=== PATIENT | female | born 1980 | race Caucasian/White ===

== ENCOUNTER 2017-01-24 14:26 | Emergency (ER) | payer BC ==
[~2017-01-24] VITALS: Ht 160 cm; Wt 77.5 kg
[~2017-01-24 14:26] MED LIST: DAILY MULTIPLE1 EACH PO; HYDROCODON-ACE1 EAC7 PO; VITAMIN D-32000 UNI2 PO
[2017-01-24 15:17] LABS: HEMATOCRIT 46.7 % (36.0-46.0); MCH 33.7 PG (29.0-34.0); MCHC 33.6 G/DL (30.0-36.0); MCV 100.2 FL (83-99); MEAN PLAT.VOLUME 12.3 uM^3 (9.5-12.4); PLATELET COUNT 217 K/uL (156-360); RBC DIS.WIDTH-CV 12.7 % (11.8-14.6); RBC DIS.WIDTH-SD 47.4 % (39-53); RED BLOOD COUNT 4.66 M/uL (3.80-5.20); WHITE BLOOD COUNT 7.8 K/uL (4.1-10.2)
[2017-01-24 15:25] LABS: CHLORIDE 106 mEq/L (99-109); POTASSIUM 3.9 mEq/L (3.7-5.4); SODIUM 143 mEq/L (136-147)
[2017-01-24 15:27] LABS: GLUCOSE 118 mg/dL (70-99)
[2017-01-24 15:28] LABS: ANION GAP 10 MEQ/L (2-14)
[2017-01-24 15:29] LABS: TOTAL BILIRUBIN 0.4 mg/dL (0.0-1.0)
[2017-01-24 15:30] LABS: ALKALINE PHOSPHATASE 58 IU/L (3-129)
[2017-01-24 15:31] LABS: GFR ESTIMATE (CALCULATED) > 59 mL/min/
[2017-01-24 15:32] LABS: UREA NITROGEN (BUN) 12 mg/dL (9-23)
[2017-01-24 15:41] LABS: QUANTITATIVE HCG < 4.0 MIU/ML
[2017-01-24 16:29] LABS: LIPASE 31 U/L (1.0-51.0)
[2017-01-24 16:30] LABS: ADD MIUA? YES; BILIRUBIN NEGATIVE; BLOOD NEGATIVE; COLOR YELLOW ((YELLOW)); GLUCOSE (STRIP) NEGATIVE; KETONES NEGATIVE; LEUKOCYTES LARGE; NITRITE NEGATIVE; PROTEIN (STRIP) 30; SPECIFIC GRAVITY 1.012 (1.000-1.030); UROBILINOGEN 0.2 MG/DL (0.2-1.0)
[2017-01-24 16:58] LABS: RED BLOOD CELLS 0-5 /HPF (0-5); WHITE BLOOD CELLS 40-50 /HPF (0-5)
[2017-01-24 16:59] LABS: BACTERIA 1+ /HPF; EPITHELIAL CELLS 1+ /HPF; MUCUS NONE SEEN /LPF; UCUL ADDED? NO
[2017-01-24] MEDS ORDERED: KEFLEX500 MG PO (17:43)
[2017-01-24] MEDS ORDERED: ZOFRAN ODT4 MG PO (17:43)
[2017-01-24 18:15] VITALS: BP 125/76
== END 2017-01-24 18:16 | disposition home or self-care (01) ==
LOC: EME 14:26
DX: N39.0 Urinary tract infection, site not specified (principal); N20.0 Calculus of kidney; Z87.891 Personal history of nicotine dependence
CPT/HCPCS: 74176; 80053; 81003; 83690; 84702; 85027; 99281; 99284

== ENCOUNTER 2017-03-17 10:14 | Day surgery (SDC) | payer BC ==
[~2017-03-17] VITALS: Ht 162.6 cm; Wt 77.5 kg
[~2017-03-17 10:14] MED LIST changes: +KEFLEX500 MG PO; +LEXAPRO10 MG PO; +VIACTIV SOFT C1 EACH PO; +VITAMIN B12 100MCG PO; +ZOFRAN ODT4 MG PO
[2017-03-17 10:28] VITALS: BP 111/57
[2017-03-17 18:06] VITALS: BP 127/67
[2017-03-17 19:20] VITALS: BP 115/57
[2017-03-17 23:40] VITALS: BP 110/53
[2017-03-18 03:44] VITALS: BP 102/53
[2017-03-18 07:30] VITALS: BP 99/55
[2017-03-18 12:25] VITALS: BP 112/57
[2017-03-21 11:59] LABS: INTERNAL CONTROL VALID? YES
== END 2017-03-18 13:52 | disposition home or self-care (01) ==
LOC: SDC 10:14 → 2EASTP 12:48 → 2SOUTH 12:48 → SDC 14:31 → 2EASTP 17:59
PROVIDERS: Surgery Plastic and Reconstructive Surgery
DX: N62 Hypertrophy of breast (principal); M54.5 Low back pain; M53.82 Other specified dorsopathies, cervical region; E66.01 Morbid (severe) obesity due to excess calories; F41.9 Anxiety disorder, unspecified; Z82.49 Family history of ischemic heart disease and other diseases of the circulatory system; Z87.891 Personal history of nicotine dependence; Z98.84 Bariatric surgery status; Z68.29 Body mass index [BMI] 29.0-29.9, adult
CPT/HCPCS: 84703; 88305; G0378; J0131; J0330; J0690; J1100; J1170; J2250; J2405; J3010; J7050